=== PATIENT | female | born 1965 ===

== ENCOUNTER → 2016-07-01 | Outpatient (REF) | payer BC ==
[2016-07-01 12:24] LABS: MEAN CORPUSCULAR HEMOGLOBIN 31.9 pg (27.0-33.0); MEAN CORPUSCULAR VOLUME 94.1 fl (80.0-96.0); RED CELL DISTRIBUTION WIDTH 11.8 % (11.5-14.5); WHITE BLOOD COUNT 6.1 K/mm3 (4.0-10.0)
[2016-07-01 12:52] LABS: EOSINOPHILS 2 % (0-5)
[2016-07-01 12:55] LABS: ERYTHROCYTE SEDIMENTATION RATE 10 mm/hr (0-20)
[2016-07-03 00:07] LABS: Lyme Disease IgG/IgM Antibodie <0.91 ISR (0.00-0.90); Lyme Disease IgM Ab Quantitati <0.80 index (0.00-0.79)
== END ==
LOC: M LABDRAW1 11:57
PROVIDERS: ATTEND Physician Assistant Surgical
DX: M17.11 Unilateral primary osteoarthritis, right knee (principal)